=== PATIENT | male | born 1980 | race Caucasian/White ===

== ENCOUNTER 2023-03-12 18:17 | Emergency (ER) | payer SELFPAY ==
--- NOTE | 2023-03-12 18:29 | ED.AMS ---
HPI - Altered Mental Status General Chief Complaint: Altered Mental Status <Lety Ventura MD - Last Filed: 03/12/23 22:30> Stated Complaint: Psych <Lety Ventura MD - Last Filed: 03/12/23 22:30> Time Seen by Provider: 03/12/23 18:23 <Lety Ventura MD - Last Filed: 03/12/23 22:30> History of Present Illness HPI narrative: Patient is a middle-aged male, unclear age, he is uncooperative not willing to tell us any details, presenting as an involuntary psychiatric hold per police department. He was reportedly found wandering in the middle of the street and was not making any sense so the police brought him to the ER. Upon arrival, patient is very agitated and threatening. He is currently handcuffed by police. Upon my introduction, he accused me of being a woman. He then states that he is not espinosa and is rambling about [employer]. Further history is limited secondary to his mental status. <Lety Ventura MD - Last Filed: 03/12/23 22:30> Review of Systems Review of Systems: ROS unobtainable: Yes unobtainable due to mental status <Lety Ventura MD - Last Filed: 03/12/23 22:30> Exam Narrative: GENERAL: Disheveled middle-aged male screaming out random phrases HEAD: Normocephalic, atraumatic. EYES: PERRLA and EOMI. ENT: Poor dentition throughout NECK: Supple. CHEST: No respiratory distress. HEART: Regular rate and rhythm ABDOMEN: Nondistended EXTREMITIES: Normal range of motion. No edema. SKIN: Warm NEURO: Moving all extremities spontaneously PSYCH: Agitated and threatening, rambling nonsensical speech, unwilling to cooperate with exam <Lety Ventura MD - Last Filed: 03/12/23 22:30> Course Course Emergency Course: MANNY 0600: Patient was signed out to me pending sobriety. He was monitored until sober. He denies HI/ SI. Walking with a steady gait. Far more agreeable this morning. Discharged. <Jorge L Douglas MD - Last Filed: 03/13/23 06:02> Vital Signs Vital signs: Vital Signs Pulse Rate 90 03/12/23 22:24 Respiratory Rate 12 03/12/23 22:24 Blood Pressure 92/52 L 03/12/23 22:24 Pulse Oximetry 95 03/12/23 22:24 Pulse Rate 90 03/13/23 05:01 Respiratory Rate 15 03/13/23 05:01 Blood Pressure 112/70 03/13/23 05:01 Pulse Oximetry 98 03/13/23 05:01 <Lety Ventura MD - Last Filed: 03/12/23 22:30> Vital Signs Pulse Rate 90 03/12/23 22:24 Respiratory Rate 12 03/12/23 22:24 Blood Pressure 92/52 L 03/12/23 22:24 Pulse Oximetry 95 03/12/23 22:24 Pulse Rate 90 03/13/23 05:01 Respiratory Rate 15 03/13/23 05:01 Blood Pressure 112/70 03/13/23 05:01 Pulse Oximetry 98 03/13/23 05:01 <Jorge L Douglas MD - Last Filed: 03/13/23 06:02> MDM - Altered Mental Status MDM Narrative Medical decision making narrative: Patient is a middle-aged male presenting in police custody for involuntary hold due to walking into traffic. On arrival, the patient is agitated and threatening. He is rambling nonsensically and threatening multiple staff members. Patient received 10 of IM Haldol, 2 of IM Ativan, 50 of IM Benadryl with improvement in his agitation. He was placed in violent restraints for the safety of staff as well as himself. After couple hours of observation, patient is starting to wake up and he is no longer agitated. He is redirectable and no longer threatening so the restraints have been removed. Labs are starting to come back, ethanol is elevated at 242. Remainder of blood work is unremarkable. Patient needs to metabolize to clinical sobriety. If he is appropriate and without SI or HI, feel he can likely be discharged. <Lety Ventura MD - Last Filed: 03/12/23 22:30> Differential Diagnosis Differential diagnosis: Likely alcoholic intoxication, altered mental status and other (agitation, HI, SI) <Lety Ventura MD - Last Filed: 03/12/23 22:30> Medical Records Attestatio
[2023-03-12] MEDS: HALOPERIDOL LACTATE 5 MG/ML VIAL 10 MG IM (18:37)
[2023-03-12] MEDS: LORazepam INJ (*CRX) 2 MG/ML VIAL IM (18:38)
[2023-03-12] MEDS: diphenhydrAMINE HCl INJ 50 MG/ML VIAL IM (18:39)
--- NOTE | 2023-03-12 18:51 | PC.NURSE ---
Unable to obtain vitals. Pt still combative with hallucinations after medication. Sitter at bedside.
--- NOTE | 2023-03-12 20:22 | ECG_ITS ---
Measurements Intervals [place] Rate: P: NH: QRS: QRSD: T: QT: QTc: Interpretive Statements POOR QUALITY ECG WITH COPY TRACING/DIFFICULT INTERPRETATION ATRIAL FIBRILLATION RIGHT BUNDLE BRANCH BLOCK LEFT ANTERIOR SUPERIOR HEMIBLOCK ABNORMAL ECG Electronically Signed On 03-26-2023 11:46:36 CDT by Alexandro Gold M.D.
[2023-03-12 21:06] LABS: Basophils Percent Auto 0.4 % (0.2-1.2); Eosinophils Percent Auto 0.3 % (0-4.4); Hematocrit 45.5 % (42.0-52.0); Hemoglobin 14.9 g/dL (14.0-18.0); Immature Granulocyte Absolute 0.01 K/mm3 (0.00-0.031); Immature Granulocyte Percent A 0.1 % (0-0.5); Lymphocytes Absolute Auto 1.93 K/mm3 (0.9-3.2); Lymphocytes Percent Auto 28.3 % (18.3-44.2); Mean Corpuscular HGB Conc 32.7 g/dl (32-36); Mean Corpuscular Hemoglobin 30.3 pg (26-34); Mean Corpuscular Volume 92.7 fl (80-100); Mean Platelet Volume 9.2 fl (7.4-10.4); Monocytes Absolute Auto 0.5 K/mm3 (0.1-0.6); Monocytes Percent Auto 6.6 % (2.6-8.5); Neutrophils Absolute Auto 4.4 K/mm3 (1.3-6.7); Neutrophils Percent Auto 64.3 % (45.5-73.1); Platelet Count Result 259 k/mm3 (150-375); Red Blood Count 4.91 M/mm3 (4.6-6.20); Red Cell Distribution Width 13.1 % (11.5-14.5); White Blood Count 6.8 K/mm3 (4.5-10.0)
[2023-03-12 21:14] LABS: Acetaminophen < 10 ug/mL (10-30); Ethanol 242 mg/dL (<10); Salicylate < 1.0 mg/dL (2-20)
[2023-03-12 21:15] LABS: Alanine Aminotransferase 29 U/L (6-50); Albumin Level 4.5 g/dL (3.5-5.1); Alkaline Phosphatase 125 U/L (38-126); Anion Gap 8 mmol/L (8-16); Aspartate Amino Transferase 50 U/L (17-59); Bilirubin,Total 0.3 mg/dL (0.2-1.3); Blood Urea Nitrogen 11 mg/dL (9-20); Calcium 8.8 mg/dL (8.4-10.2); Carbon Dioxide 24 mmol/L (22-30); Chloride 109 mmol/L (98-107); Estimated Glomerular Filt Rate > 60; Glucose 90 mg/dL (65-110); Potassium 4.1 mmol/L (3.4-5.0); Sodium 141 mmol/L (137-145)
--- NOTE | 2023-03-12 21:47 | PC.NURSE ---
EDP notified of patient condition; Agreeable to take off patient hard restraints.
[2023-03-12 22:24] VITALS: BP 92/52; PULSE 90; RESP 12; O2SAT 95
[2023-03-12 23:31] VITALS: BP 96/54; PULSE 90; RESP 15; O2SAT 96
[2023-03-13 02:04] LABS: Appearance Urine Clear (Clear); Bacteria Urine None Seen /hpf; Bilirubin Urine Negative (Negative); Blood Urine Negative (Negative); Color Urine Yellow (Yellow); Glucose Urine UA Negative (Negative); Ketones Urine Negative (Negative); Leukocyte Esterase Ur 1+ LEU/UL (Negative); Nitrate Urine Negative (Negative); Non Pathogenic Casts 0-2; Protein Urine Trace mg/dL (Negative); RBC Urine 0-2 /hpf (0-2); Specific Grav Ur 1.023 (1.001-1.035); Squamous Epithelial Cell Urine None seen /hpf (Few); Urobilinogen Urine 0.2 mg/dL (<2.0); WBC Urine 21-50 /hpf; pH Urine 5.5 (5.0-9.0)
[2023-03-13 02:15] LABS: Add Urine Microscopic? YES
[2023-03-13 02:17] LABS: Amphetamine Screen Urine Negative (Negative); Barbiturate Screen Urine Negative (Negative); Benzodiazepines Screen Urine Negative (Negative); Cannabinoid Screen Urine Positive (Negative); Cocaine Screen Urine Negative (Negative); Methadone Screen Urine Negative (Negative); Opiate Screen Urine Negative (Negative); Phencyclidine Screen Urine Negative (Negative)
[2023-03-13 05:01] VITALS: BP 112/70; PULSE 90; RESP 15; O2SAT 98
[2023-03-13 05:18] LABS: Ethanol 23 mg/dL (<10)
[2023-03-13 06:21] VITALS: BP 116/74; PULSE 86; RESP 15; O2SAT 97
== END 2023-03-13 06:22 | disposition home or self-care (01) ==
PROVIDERS: Emergency Medicine; Emergency Provider Emergency Medicine
DX: R41.82 Altered mental status, unspecified (principal); F10.129 Alcohol abuse with intoxication, unspecified; Y90.8 Blood alcohol level of 240 mg/100 ml or more
CPT/HCPCS: 36415; 80053; 80307; 81001; 84443; 85025; 87086; 93005; 96372; 99284; J1200; J1630; J2060